=== PATIENT | female | born 1955 | race Caucasian/White ===

== ENCOUNTER 2022-06-12 06:10 | Day surgery (SDC) | payer MEDICARE ==
[~2022-06-12] VITALS: Ht 162.6 cm; Wt 87.0 kg
[~2022-06-12 06:10] MED LIST: FERROUS GLUCON324 M1 PO; HYDROXYZINE HCL25 MG PO; LEXAPRO10 MG PO; MULTI COMPLETE1 EACH PO
--- NOTE | 2022-06-12 08:05 | NUR ---
06/12/22 0805 Estela Shi 0801- PT ARRIVES TO PACU AWAKE ON AND OFF ON HER OWN. PT REPORTS NO PAIN OR NAUSEA. RESP EVEN AND UNLABORED. OXYGEN SAT HIGH 90'S ON 4L VIA CO2 NC. PT ENCOURAGED TO PASS FLATUS IF SHE IS HAVING ANY ABD CRAMPING. PT STATES UNDERSTANDING.
--- NOTE | 2022-06-12 14:16 | NUR ---
PT ALERT, ORIENTED AND HERE FOR HER FIRST SCOPE AND EGD. PT PLEASANT, SAID HER FAMILY HAD ARRANGED A RIDE FOR DC. PT REQUESTED PRAYERM GAVE COMFORT, SUPPORT AND ENCOURAGEMENT. WILL FOLLOW
--- NOTE | 2022-06-13 07:23 | OR ---
[facility] [address], [place] [address] Signed DATE OF OPERATION: 06/12/2022 SURGEON: Kayla Byrd MD PREOPERATIVE DIAGNOSES: 1. Recurrent iron deficiency anemia. 2. Diarrhea. POSTOPERATIVE DIAGNOSES: 1. Moderate sized hiatal hernia (36-32 cm). 2. Shallow antral gastric ulcers x2. 3. Minimal to moderate sigmoid diverticulosis. 4. Minimal internal hemorrhoids. 5. Tortuous sigmoid colon. 6. 4 mm polyp at the base of cecum. 7. 4 mm polyp at 20 cm (sigmoid colon). PROCEDURES: 1. EGD with CLOtest and biopsy of the duodenum and antrum. 2. Colonoscopy biopsy. ESTIMATED BLOOD LOSS: None. INDICATIONS: Fredi is a 67-year-old female, asked to see me for upper and lower endoscopy. She had heavy menstrual cycles clear back to when she was a teenager. This was associated with iron deficiency anemia. She finally had a hysterectomy at age 38 back in 1992. She had endometriosis as well as uterine fibroid tumors. She has been on and off iron pills throughout her whole life. She is now back on her iron tablets. She has been online reading and is quite convinced that iron tablets are causing her diarrhea. She had a negative Cologuard test in 2019. When she stopped the iron tablets, the diarrhea went away. She has no upper or lower GI complaints. She was asked to see me for both upper and lower endoscopy. She gives no family history of colon cancer or polyps. In the office, I gave Fredi pamphlets on both upper and lower endoscopy. We reviewed the nature of the two tests. There is risk including, but not limited to gas bloating, crampy abdominal pain, bleeding, perforation requiring surgery, and missed diagnosis. We also reviewed the written instructions for the bowel prep line by line. She also understands the need for IV conscious sedation. She had expressed understanding and wished to proceed. Electronically Signed By: KAYLA BYRD MD 06/13/22 0723 PATIENT NAME: FREDI PAK OPERATIVE REPORT DATE OF : 53 REPORT #: [id number] PHYSICIAN: KAYLA YBRD MD PCP: YESICA GUTIÉRREZ MD REPORT IS CONFIDENTIAL AND NOT TO BE RELEASED WITHOUT AUTHORIZATION [facility] [address], [place] [address] Signed PROCEDURE NOTE: Fredi was taken into our endoscopy suite and placed in the supine semi-recumbent position. The posterior oropharynx was anesthetized with Hurricaine spray. A bite block was utilized for the case. She was given 2 mg of Versed and 100 mcg of fentanyl to start the case. She is very sensitive to the medications and we found that we had to hold her jaw up during the upper endoscopy. The adult gastroscope had been introduced and advanced out to the third portion of the duodenum. The duodenum and pyloric channel were unremarkable. In the antrum of the stomach, she has two small shallow antral ulcers next to each other. They are not bleeding. We took biopsies from the antrum for pathologic review as well as CLOtest. Upon retroflexion of the scope, I can see a moderate-sized hiatal hernia. It measured out from 36 cm up to 32 cm. The scope was then withdrawn up to the area of the GE junction, which was compliant without stricture. There was no gastric or esophageal varices. Little or no disruption to the Z-line. No Fan's mucosa. No distal esophagitis. The middle and upper esophagus were unremarkable. After this, the gas had been suctioned out and the gastroscope removed. Overall, Fredi tolerated the procedure well. We had to keep her light during upper and lower endoscopy because of her decrease respiratory rate. If she has recall of that, she is going to need monitored anesthesia care in the future. Fredi was rotated into the left lateral decubitus position. She was maintained on additional Versed and fentanyl in total. She received 5 mg of Versed and 125 mcg of fentanyl. A digital rectal exam was performed and this was unremarkable. She had good sphincter tone. No external hemorrhoids. There were no masses. The adult colonoscope was then introduced and advanced under direct visualization of the camera. It took just a few minutes to get through her tortuous sigmoid colon. After that, the scope traveled fairly nicely up to the cecum itself. Again, we had to keep her little light because she would quit breathing with additional doses. Her prep was quite excellent. We could easily see the appendiceal orifice and the ileocecal valve. The scope was then slowly withdrawn. We took pictures throughout for photodocumentation. We removed the polyp in the base of the cecum as well as in the distal sigmoid colon. She does have diverticulosis. They were minimal to moderate in size and minimal to moderate in number, and scattered about. The scope had been retroflexed in the rectum and there was very minimal if any internal hemorrhoid tissue. After this, the gas was suctioned out and the colonoscope removed. Fredi tolerated the lower endoscopy well. RECOMMENDATIONS: I will see Fredi back in my office in 7 to 14 days to review her results. She may or may not need monitored anesthesia care in the future given her extreme sensitivity to the Versed and fentanyl with decreased respiratory rate. Electronically Signed By: KAYLA BYRD MD 06/13/22 0723 PATIENT NAME: FREDI PAK OPERATIVE REPORT DATE OF : 53 REPORT #: [id number] PHYSICIAN: KAYLA BYRD MD PCP: YESICA GUITÉRREZ MD REPORT IS CONFIDENTIAL AND NOT TO BE RELEASED WITHOUT AUTHORIZATION [address] [address] Signed Kayla Byrd MD ALB/MODL /[id number] cc: MD Yesica Bowden MD Copies: KAYLA BYRD MD ~ Electronically Signed By: KAYLA BYRD MD 06/13/22 0723 PATIENT NAME: FREDI PAK OPERATIVE REPORT DATE OF : 53 REPORT #: [id number] PHYSICIAN: KAYLA BYRD MD PCP: YESICA GUTIÉRREZ MD REPORT IS CONFIDENTIAL AND NOT TO BE RELEASED WITHOUT AUTHORIZATION
--- NOTE | 2022-06-17 15:34 | PATH ---
[facility] [address] [place], [place] [address] Signed SPECIMEN(S): A DUODENAL BIOPSY SPECIMEN(S): B ANTRUM/ANTRAL BIOPSY SPECIMEN(S): C CECUM POLYP SPECIMEN(S): D SIGMOID POLYP AT 20 CM SPECIMEN SOURCE: A. DUODENAL BIOPSY B. ANTRUM/ANTRAL BIOPSY C. CECUM POLYP D. SIGMOID POLYP AT 20 CM CLINICAL HISTORY: Chronic anemia; diarrhea FINAL PATHOLOGIC DIAGNOSIS: A. Duodenal biopsy: - Benign duodenal mucosa, negative for specific diagnostic abnormality. B. Antrum / antral biopsy: - Benign gastric antral-type mucosa with diffuse chronic gastritis. - A Helicobacter pylori immunostain is positive for organisms. C. Cecum polyp: - Tubular adenoma (one fragment). D. Sigmoid polyp at 20 cm: - Hyperplastic polyp (one fragment). JVR:[facility]:C2NR MICROSCOPIC EXAMINATION: Histologic sections of all submitted blocks are examined by light microscopy. These findings, together with the gross examination, support the pathologic diagnosis. A Helicobacter pylori immunostain is performed with appropriate positive and negative controls on block (B1) and is positive for organisms. JVR:[facility] GROSS DESCRIPTION: Four specimens are received in four containers, labeled "Fredi Joe." A. The specimen, labeled " Fredi Joe, #1," and designated on the requisition "duodenum biopsy," is received in formalin and consists of one gibbs soft tissue fragment that measures 0.9 cm in greatest dimension. The specimen is entirely submitted in cassette (A1). B. The specimen, labeled " Fredi Joe, #2," and designated on the PATIENT NAME: FREDI JOE PATHOLOGY DATE OF : 53 REPORT #: [id number] PHYSICIAN: JOANNA BENITO PCP: JOSEPH GUTIÉRREZ MD REPORT IS CONFIDENTIAL AND NOT TO BE RELEASED WITHOUT AUTHORIZATION [facility] [address] [place], [place] [address] Signed requisition "antrum/pylorus biopsy," is received in formalin and consists of one gibbs soft tissue fragment that measures 0.7 cm in greatest dimension. The specimen is entirely submitted in cassette (B1). C. The specimen, labeled " Fredi Joe, #3," and designated on the requisition "cecum polyp," is received in formalin and consists of one gibbs soft tissue fragment that measures 0.3 cm in greatest dimension. The specimen is entirely submitted in cassette (C1). D. The specimen, labeled " Fredi Joe," and designated on the requisition "sigmoid polyp at 20," is received in formalin and consists of one gibbs soft tissue fragment that measures 0.4 cm in greatest dimension. The specimen is entirely submitted in cassette (D1). FB (under the direct supervision of a pathologist) The Gross Description was prepared using a voice recognition system. The report was reviewed for accuracy; however, sound-alike word errors, addition and/or deletions may occur. If there is any question about this report, please contact Client Services. ADDITIONAL NOTES: Immunohistochemical and/or in situ hybridization studies were performed on this case with the appropriate positive controls that react as expected. This test was developed and its performance characteristics determined by [facility]. It has not been cleared or approved by the U.S. Food and Drug Administration. The FDA has determined that such clearance or approval is not necessary. This test is used for clinical purposes. It should not be regarded as investigational or for research. [facility] is certified under the Clinical Laboratory Improvement Amendments of 1988 (CLIA) as qualified to perform high complexity clinical laboratory testing. This assay has not been validated for specimens that have been decalcified. PERFORMING LABORATORY: The technical component was performed by [facility], [address] [place] [id number] (CLIA# [id number]). Professional interpretation was performed by [facility], [address] [place] [id number] (CLIA#: [id number]). Diagnostician: Chucho Kevin MD Pathologist Electronically Signed 06/17/2022 PATIENT NAME: FREDI JOE PATHOLOGY DATE OF : 53 REPORT #: [id number] PHYSICIAN: JOANNA BENITO PCP: JOSEPH GUTIÉRREZ MD REPORT IS CONFIDENTIAL AND NOT TO BE RELEASED WITHOUT AUTHORIZATION [facility] [address] [place] [address] [place] [address] Signed Copies: ~ PATIENT NAME: FREDI JOE PATHOLOGY DATE OF : 53 REPORT #: [id number] PHYSICIAN: JOANNA PATHOLOGY PCP: JOSEPH GUTIÉRREZ MD REPORT IS CONFIDENTIAL AND NOT TO BE RELEASED WITHOUT AUTHORIZATION
== END 2022-06-12 08:36 | disposition home or self-care (01) ==
LOC: OPS 06:10 → DS 06:10 → OPS 07:30 → DS 07:30 → OPS 08:36
PROVIDERS: ATTEND Colon & Rectal Surgery
PROC: 0DBN8ZZ Excision of Sigmoid Colon, Via Natural or Artificial Opening Endoscopic (ICD-10-PCS; 2022-06-12)
PROC: 0DB68ZX Excision of Stomach, Via Natural or Artificial Opening Endoscopic, Diagnostic (ICD-10-PCS; principal; 2022-06-12 07:30)
PROC: 0DBH8ZZ Excision of Cecum, Via Natural or Artificial Opening Endoscopic (ICD-10-PCS; 2022-06-12 07:30)
DX: D50.9 Iron deficiency anemia, unspecified (principal); K44.9 Diaphragmatic hernia without obstruction or gangrene; K57.30 Diverticulosis of large intestine without perforation or abscess without bleeding; K63.89 Other specified diseases of intestine; E66.9 Obesity, unspecified; K29.50 Unspecified chronic gastritis without bleeding; D12.0 Benign neoplasm of cecum; K63.5 Polyp of colon; Z68.33 Body mass index [BMI] 33.0-33.9, adult; R19.7 Diarrhea, unspecified
CPT/HCPCS: 36415; 87077; 88305; 88342; 99153; G0500; J2250; J3010; J7121

== ENCOUNTER 2022-10-31 07:55 | Day surgery (SDC) | payer MEDICARE ==
[~2022-10-31] VITALS: Ht 162.6 cm; Wt 91.0 kg
[~2022-10-31 07:55] MED LIST changes: +PRILOSEC OTC20 MG PO
[2022-10-31] MEDS ORDERED: IBUPROFEN200 M1 PO (08:22)
--- NOTE | 2022-10-31 12:35 | NUR ---
10/31/22 1235 Uma Butts 1230 PATIENT ARRIVES TO PACU AWAKE BUT DROWSY. RESP EVEN AND UNLABORED, MASK AT 6 LITERS. 1234 OXYGEN OFF.
--- NOTE | 2022-10-31 13:05 | NUR ---
PT ARRIVES FROM PACU VIA STRETCHER TO UNIT. REPORT RECEIVED FROM VADIM HERNANDEZ. PT REPORTS PAIN 3/10 WHICH IS TOLERABLE PT STATES. PT REPORTS NO NAUSEA, DIZZINESS, N/T, OR SOB AT THIS TIME. PT IS ALERT AND ORIENTED AT THIS TIME. ICE PACK IN PLACE ON PT ABDOMEN, X2 DRESSINGS (MIDLINE, LUQ) ARE C/D/I, X2 SITES UNDERNEATH RUQ HAVE SMALL AMOUNT SS DRAINAGE AT THIS TIME. VSS. SCD'S IN PLACE. PT CONSUMING JELLO AND SMALL SIPS OF WATER AT THIS TIME. 2L OF O2 VIA NC IN PLACE, O2 SATS AT 98% VIA PULSE OX. CALL LIGHT WITHIN REACH, NO FURTHER NEEDS AT THIS TIME.
--- NOTE | 2022-10-31 13:30 | NUR ---
PT REPORTS 5/10 PAIN IN ABDOMEN AT THIS TIME, PRN NORCO GIVEN (SEE EMAR). ICE PACK IN PLACE ON PT ABDOMEN. PT O2 TITRATED TO 1L VIA NC, O2 SATS ARE 96% AT THIS TIME. FRESH ICE WATER PROVIDED, CALL LIGHT WITHIN REACH, NO FURTHER NEEDS AT THIS TIME.
--- NOTE | 2022-10-31 14:05 | NUR ---
IN PT ROOM FOR VS AND ASSESSMENT. PT REPORTS PAIN STILL AT 5/10 AT THIS TIME IN RUQ. PT REPORTS NO NAUSEA, DIZZINESS, SOB, OR N/T AT THIS TIME. NO ACUTE CHANGES FROM PREVIOUS ASSESSMENT. DRESSING IN RUQ HAS SMALL AMOUNT OF OLD SS SHADOWING, UMBILICUS AND MIDLINE EPIGASTRIC DRESSING IS C/D/I. NO NEW SIGNS OF BLEEDING AT THIS TIME. IV SITE SALINE LOCKED, WNL. PT ON RA AT THIS TIME W/O2 SATS AT 95% VIA PULSE OX, HR REMAINS BETWEEN 45-60 AT THIS TIME. CALL LIGHT WITHIN REACH, NO FURTHER NEEDS AT THIS TIME.
--- NOTE | 2022-10-31 15:05 | NUR ---
IN PT ROOM FOR ASSESSMENT, VS. PT REPORTS PAIN 3/10 AT THIS TIME WHICH PT STATES IS TOLERABLE. PT IS A&O X4. PT REPORTS NO N/T, DIZZINESS, SOB, NAUSEA, BLOATING/DISTENTION. NO ACUTE CHANGES FROM PREVIOUS ASSESSMENT FOR DRESSING. SMALL AMOUNT OF OLD SS SHADOWING ON RUQ DRESSING, THE REST ARE C/D/I. ICE PACK IN PLACE. PT AMBULATES TO RESTROOM, THIS RN STANDBY ASSIST. PT REPORTS NO DIZZINESS, ONLY MINIMAL WEAKNESS W/AMBULATION, NO INCREASE IN PAIN. PT URINE VOID. THIS RN ASSISTED PT W/GETTING DRESSED.
--- NOTE | 2022-10-31 15:30 | NUR ---
THIS RN PROVIDES DISCHARGE EDUCATION/INSTRUCTIONS. PT STATES VERBAL UNDERSTANDING AND STATES NO FURTHER QUESTIONS/NEEDS AT THIS TIME. IV DC'ED BY THIS RN, COBLELO AND GATAYE IN PLACE. FRESH ICE PACK PROVIDED. ALL BELONGINGS IN PT POSSESSION. THIS RN ESCORTS PT OFF UNIT VIA WC AND MEETS MARIALUISA (SISTER IN [employer]) OUTSIDE FRONT ENTRANCE. NO FURTHER NEEDS AT THIS TIME.
--- NOTE | 2022-11-03 08:13 | OR ---
[facility] [address] [place], [place] [address] Signed DATE OF OPERATION: 10/31/2022 SURGEON: Kayla Byrd MD PREOPERATIVE DIAGNOSES: 1. Chronic cholecystitis and cholelithiasis. 2. Biliary colic. POSTOPERATIVE DIAGNOSES: 1. Chronic cholecystitis and cholelithiasis. 2. Biliary colic. PROCEDURE: Laparoscopic cholecystectomy with intraoperative cholangiogram. ESTIMATED BLOOD LOSS: None. FINDINGS: Fredi indeed had chronic inflammatory changes around her gallbladder. She had multiple gallstones as well. The intraoperative cholangiogram was unremarkable. There were no filling defects. The contrast flowed nicely into the duodenum. It appears that she also has cholesterolosis. INDICATIONS: Fredi is a 67-year-old obese female, asked to see me for her symptomatic gallstones. She has been having right upper quadrant right flank pain radiating up to her right shoulder. She had been to our urgent care clinic back in August 2022. The blood work was fine. Ultrasound showed multiple gallstones. The gallbladder wall was not thickened. Her Willis sign was negative. Common bile duct was unremarkable at 4.8 mm. She had gone to her primary care provider who asked her to come see me with her ongoing symptoms. I met with Fredi in the office. I gave her my brochure on the gallbladder. We had reviewed the location and function of the gallbladder. We reviewed laparoscopic versus open cholecystectomy. There is risk including, but not limited to bleeding, infection, scarring, change in contour of the skin, damage to bowel, damage to the main bile duct, incisional hernias and other unforeseen comorbidities. We had reviewed the expected intraop and postop course. She had expressed understanding and wished to proceed. DESCRIPTION OF PROCEDURE: Electronically Signed By: KAYLA BYRD MD 11/03/22 0813 PATIENT NAME: FREDI PAK OPERATIVE REPORT DATE OF : 53 REPORT #: [id number] PHYSICIAN: KAYLA BYRD MD PCP: JOSEPH GUTIÉRREZ MD REPORT IS CONFIDENTIAL AND NOT TO BE RELEASED WITHOUT AUTHORIZATION [facility] [address] [place], [place] [address] Signed I met with Ferdi in our preop area. After answering her questions, we took her into the operating room. She was placed in the supine position under general endotracheal tube anesthesia. She was given preoperative antibiotics along with subcutaneous heparin. SCDs were utilized. She was then prepped and draped in the usual sterile fashion. All trocars were placed in their usual positions under direct visualization of the camera without difficulty. She had a few adhesions near the top of the gallbladder and down the right side of her liver. They were easily divided with the help of cautery all the way out to the lateral chest wall. After this, the gallbladder was grasped and elevated in the right upper quadrant. We could see she had multiple stones within the gallbladder. The triangle of Calot was then dissected free. We placed two clips across the cystic artery and it was divided. We then inserted our cholangiocatheter into the cystic duct. The intraoperative cholangiogram was performed. This was found to be unremarkable. We secured the cystic duct stump with a PDS Endoloop along with two clips to kingsley its location. The gallbladder was then removed from the gallbladder fossa with the help of the cautery and placed into an EndoCatch bag. The right upper quadrant was irrigated and suctioned out until clear. We used our laparoscopic suturing device to pass 0-Vicryl suture on either side of the fascia of the subxiphoid trocar site. This was tied down to close this fascia primarily. After this, all the gas was allowed to escape and all the trocars were removed. We closed the fascia of the supraumbilical trocar site with interrupted 0-Vicryl sutures in simple and [id number] fashion. Local anesthetic was injected into all trocar sites. Each trocar site was irrigated and suctioned out until clear. The skin and dermis of each trocar site was then closed with interrupted 3-0 subcuticular Monocryl sutures. Dry gauze and tape was applied all incisions. Fredi was awakened from her anesthesia, extubated in the OR, and taken to recovery room in stable condition. Kayla Byrd MD ALB/MODL /[id number] cc: MD Kayla Larios MD Electronically Signed By: KAYLA BYRD MD 11/03/22 0813 PATIENT NAME: FREDI PAK OPERATIVE REPORT DATE OF : 53 REPORT #: [id number] PHYSICIAN: KAYLA BYRD MD PCP: JOSEPH GUTIÉRREZ MD REPORT IS CONFIDENTIAL AND NOT TO BE RELEASED WITHOUT AUTHORIZATION [address] [address] Signed Copies: KALYA BYRD MD ~ Electronically Signed By: KAYLA BYRD MD 11/03/22812 PATIENT NAME: FREDI PAK OPERATIVE REPORT DATE OF : 53 REPORT #: [id number] PHYSICIAN: KAYLA BYRD MD PCP: JOSEPH GUTIÉRREZ MD REPORT IS CONFIDENTIAL AND NOT TO BE RELEASED WITHOUT AUTHORIZATION
--- NOTE | 2022-11-03 16:12 | PATH ---
[facility] [address] [facility] [place] [place] [address] Signed SPECIMEN(S): A GALLBLADDER AND STONES SPECIMEN SOURCE: A. GALLBLADDER AND STONES CLINICAL HISTORY: Calculus of gallbladder with acute and chronic cholecystitis and obstruction. FINAL PATHOLOGIC DIAGNOSIS: Gallbladder and stones: - Chronic calculous cholecystitis. JVR:susie:C2NR MICROSCOPIC EXAMINATION: Histologic sections of all submitted blocks are examined by light microscopy. These findings, together with the gross examination, support the pathologic diagnosis. GROSS DESCRIPTION: The specimen, labeled and designated "Tatyana, mingo," is received in formalin and consists of Specimen: Previously opened gallbladder. Dimensions: 9.0 x 4.5 cm. Serosa: Violaceous, smooth. Cystic Duct: Inked and unobstructed. Calculi: Eight green, faceted gallstones within the container that range in size from 0.8 to 1.6 cm in greatest dimension. Mucosa: [place]-g[place]bs and velvety. Wall thickness: 0.3 cm. Lymph node: No pericystic lymph nodes are grossly identified. Additional: None. Sports Announcer sections are submitted in (A1). JS (under the direct supervision of a pathologist) The Gross Description was prepared using a voice recognition system. The report was reviewed for accuracy; however, sound-alike word errors, addition and/or deletions may occur. If there is any question about this report, please contact Client Services. PERFORMING LABORATORY: The technical component was performed by [facility], [address] [place] [id number] (CLIA# [id number]). Professional interpretation was PATIENT NAME: FREDI PAK PATHOLOGY DATE OF : 53 REPORT #: [id number] PHYSICIAN: JOANNA PATHOLOGY PCP: JOSEPH GUTIÉRREZ MD REPORT IS CONFIDENTIAL AND NOT TO BE RELEASED WITHOUT AUTHORIZATION [facility] [address] [facility] [place] [address] Signed performed by [facility] [address] [id number] (CLIA#: [id number]). Diagnostician: Chucho Kevin MD Pathologist Electronically Signed 11/03/2022 Copies: ~ PATIENT NAME: FREDI PAK PATHOLOGY DATE OF : 53 REPORT #: [id number] PHYSICIAN: [facility] PCP: JOSEPH GUTIÉRREZ MD REPORT IS CONFIDENTIAL AND NOT TO BE RELEASED WITHOUT AUTHORIZATION
== END 2022-10-31 15:30 | disposition home or self-care (01) ==
LOC: DS 07:55
PROVIDERS: ATTEND Colon & Rectal Surgery
PROC: 0FT44ZZ Resection of Gallbladder, Percutaneous Endoscopic Approach (ICD-10-PCS; principal; 2022-10-31 09:00)
DX: K80.64 Calculus of gallbladder and bile duct with chronic cholecystitis without obstruction (principal); E66.9 Obesity, unspecified; Z68.35 Body mass index [BMI] 35.0-35.9, adult
CPT/HCPCS: 74300; J0131; J0330; J0690; J1644; J1885; J2001; J2405; J2704; J3010; J7121; Q9967

== ENCOUNTER 2024-06-11 08:27 | Emergency (ER) | payer MEDICARE ==
[~2024-06-11] VITALS: Ht 162.6 cm; Wt 94.4 kg
[~2024-06-11 08:27] MED LIST changes: +IBUPROFEN200 M1 PO
[2024-06-11] MEDS ORDERED: ESCITALOPRAM OX10 MG PO (08:39)
[2024-06-11 09:05] LABS: BASOPHILS 1.6 % (0-2); EOSINOPHILS 1.8 % (0-6); HEMATOCRIT 21.8 % (35.0-50.0); HEMOGLOBIN 6.4 g/dL (12.0-18.0); LYMPHOCYTES 29.4 % (24-44); MCHC 29.5 g/dl (30-36); MCV 61.1 fl (81-99); MONOCYTES 7.4 % (0-12); NEUTROPHILS 59.8 % (39-80); PLATELET COUNT 351 K/uL (140-440); RBC 3.57 M/ul (4.3-5.7); RDW 18.4 (10.5-15.0)
[2024-06-11 09:14] LABS: ALBUMIN 3.5 g/dL (3.4-5.0); ANION GAP 15.2 (7-21); BILIRUBIN, TOTAL 0.4 ng/dL (0.2-1.0); BUN/CREATININE RATIO 18.75 (6.0-28.6); CALCIUM 8.3 mg/dL (8.5-10.1); CREATININE, SERUM 0.96 mg/dL (0.55-1.02); POTASSIUM 4.2 mmol/L (3.5-5.1)
[2024-06-11 09:28] LABS: ABO A; ANTIBODY SCREEN NEGATIVE; RH POSITIVE
[2024-06-11 10:50] LABS: ABO A; RH POSITIVE
[2024-06-11 10:50] LABS: IS CROSSMATCH COMPATIBLE
[2024-06-11] MEDS ORDERED: OMEPRAZOLE20 MG PO (12:55)
[2024-06-11 13:02] VITALS: BP 105/61
== END 2024-06-11 13:02 | disposition home or self-care (01) ==
LOC: ED 08:27
PROVIDERS: Emergency Medicine
DX: D64.9 Anemia, unspecified (principal); Z79.899 Other long term (current) drug therapy
CPT/HCPCS: 36415; 36430; 80053; 85025; 85060; 86850; 86900; 86901; 86922; 99283-25; P9016